=== PATIENT | male | born 1940 | race Caucasian/White ===

== ENCOUNTER 2016-12-31 10:07 | Emergency (ER) | payer MEDICARE, BC ==
[2016-12-31 10:42] VITALS: BP 127/76
--- NOTE | 2016-12-31 10:50 | EDM.PDOC ---
ED HPI GENERAL MEDICAL PROBLEM - General Time Seen by Provider: 12/31/16 10:20 Source of Information: Reports: Patient History Limitations: Reports: No Limitations - History of Present Illness INITIAL COMMENTS - FREE TEXT/NARRATIVE: According to patient he has bladder cancer and he had BCG infiltration of the bladder done yesterday. HE was fine until last night, when he started to have diarrhea, he claims he has had 10 episodes of loose stool since last night. Stools are watery, and yellow. At times he has noted some specks of blood in it. Also had some mucus in stool. He claims last night he had a temp of 105F. Presently his temp is 99.3F. No nausea or vomiting. Has been able to eat and drink. Feels mild abdominal bloating. Duration: Waxing/Waning Severity: Mild Improves with: Reports: None Worsens with: Reports: None Associated Symptoms: Reports: Fever/Chills. Denies: Chest Pain, Cough, Headaches, Loss of Appetite, Nausea/Vomiting, Rash, Shortness of Breath, Syncope , Weakness - Related Data Allergies Allergy/AdvReac Type Severity Reaction Status Date / Time No Known Allergies Allergy Verified 12/31/16 10:32 Home Meds: Home Meds Allopurinol [Allopurinol] 300 mg PO Q48H 10/15/13 [History] Enalapril Maleate [Enalapril Maleate] 10 mg PO DAILY 10/15/13 [History] Multivit&Min/FA/Lycopene/Martin [Bladder 2.2] 2 each PO DAILY 10/15/13 [History] Warfarin Sodium [Jantoven] 5 mg PO DAILY 12/31/16 [History] Warfarin Sodium [Jantoven] 7.5 mg PO DAILY 12/31/16 [History] ED ROS GENERAL - Review of Systems Review Of Systems: See Below Constitutional: Reports: Fever. Denies: Chills, Fatigue, Night Sweats, Decreased Appetite, Weight Loss HEENT: Reports: Other ( had nasl congestion few weeks ago.). Denies: Throat Pain, Throat Swelling Respiratory: Denies: Cough, Sputum Cardiovascular: Denies: Chest Pain, Syncope GI/Abdominal: Reports: Diarrhea, Distension, Flatus. Denies: Abdominal Pain, Nausea, Vomiting : Reports: Hematuria (has noticed some hematuria after bladder distension yesterday). Denies: Dysuria, Flank Pain Musculoskeletal: Denies: Joint Pain, Joint Swelling Neurological: Denies: Dizziness, Headache ED EXAM, GENERAL - Physical Exam Exam: See Below Exam Limited By: No Limitations General Appearance: Alert, WD/WN, No Apparent Distress, Other (Normal hydration) Eye Exam: Bilateral Eye: EOMI, PERRL Ears: Normal External Exam, Normal Canal, Hearing Grossly Normal, Normal TMs Ear Exam: Bilateral Ear: Auricle Normal, Canal Normal, TM normal Nose: Normal Inspection, Normal Mucosa, No Blood Throat/Mouth: Normal Inspection, Normal Lips, Normal Teeth, Normal Gums, Normal Oropharynx, Normal Voice, No Airway Compromise Head: Atraumatic, Normocephalic Neck: Normal Inspection, Supple, Non-Tender, Full Range of Motion Respiratory/Chest: No Respiratory Distress, Lungs Clear, Normal Breath Sounds, No Accessory Muscle Use, Chest Non-Tender Cardiovascular: Normal Peripheral Pulses, Regular Rate, Rhythm, No Edema, No Gallop, No JVD, No Murmur, No Rub GI/Abdominal: Normal Bowel Sounds, Soft, Non-Tender, No Organomegaly, No Distention, No Abnormal Bruit, No Mass, Other Rectal (Males) Exam: Normal Exam, Normal Rectal Tone. No: Black Stool, Bloody Stool Extremities: Normal Inspection, Normal Range of Motion, Non-Tender, Normal Capillary Refill, No Pedal Edema Course - Vital Signs Text/Narrative:: Pt's CBC shows white count of 16K. His electrolytes are normal. His Creat is slightly elevated, but we do not have his baseline creat. His hydration is appropriate clinically. Also his abdominal exam is benign, non-tender abdomen. His elevated white count to reactive change from inflammation. Pt has been here for about 1 and 1/2 hr and cannot produce stool sample. I have reassured patient that his episode of diarrhea does appear like diarrhea which might resolve in next 24 hrs. Advised plenty of fluids and powered and gatorade. Advised soft diet and avoid meat and fried food until diarrhea resolve. Advised to get stool sample for further workup. IF diarrhea worsen, of if he lethargic and tiered return to emergency room. Other kern pfollowup with primary care provider in clinic. Last Recorded V/S: Last Vital Signs Temp 99.5 F 12/31/16 10:40 Pulse 111 H 09/01/17 10:40 Resp 18 12/31/16 10:40 BP 127/76 12/31/16 10:40 Pulse Ox 96 12/31/16 10:40 - Orders/Labs/Meds Orders: Active Orders 24 hr Category Date Time Status CLOSTRIDIUM DIFFICILE BY PCR [RM] Stat Lab 12/31/16 10:38 Uncollected CULTURE-STOOL [MREF] Stat Lab 12/31/16 10:40 Uncollected Labs: Laboratory Tests 12/31/16 12/31/16 12/31/16 Range/Units 10:38 10:52 10:52 WBC 16.4 H D (4.0-11.0) K/uL RBC 4.83 (4.50-6.50) M/uL Hgb 15.2 (13.0-18.0) g/dL Hct 43.4 (40.0-54.0) % MCV 90 (76-96) fL MCH 31.5 (27.0-32.0) pg MCHC 35.0 (31.0-35.0) g/dL RDW 14.1 (11.0-16.0) % Plt Count 150 (150-400) K/uL MPV 9.8 (6.0-10.0) fL Neut % (Auto) 82.0 H (45.0-70.0) % Lymph % (Auto) 10.9 L (20.0-40.0) % Hughes % (Auto) 6.8 (3.0-10.0) % Eos % (Auto) 0.0 L (1.0-5.0) % Baso % (Auto) 0.3 (0.0-0.5) % Neut # (Auto) 13.44 H (2.00-7.50) K/uL Lymph # (Auto) 1.78 (1.50-4.00) K/uL Hughes # (Auto) 1.12 H (0.20-0.80) K/uL Eos # (Auto) 0.00 L (0.04-0.40) K/uL Baso # (Auto) 0.05 (0.02-0.10) K/uL PT 16.6 H (9.0-11.5) sec INR 1.7 (1.0-3.5) Sodium 137 (136-145) mmol/L Potassium 4.1 (3.5-5.1) mmol/L Chloride 101 (98-107) mmol/L Carbon Dioxide 29.2 (21.0-32.0) mmol/L Anion Gap 10.9 (5.0-15.0) mmol/L BUN 18 D (8-26) mg/dL Creatinine 1.37 H D (0.70-1.30) mg/dL Est Cr Clr Drug Dosing 47.31 mL/min Estimated GFR (MDRD) 51 L (>60) MLS/MIN BUN/Creatinine Ratio 13.1 (6-25) Glucose 126 H (74-100) mg/dL Calcium 8.6 (8.5-10.1) mg/dL Total Bilirubin 0.7 D (0.0-1.0) mg/dL AST 18 (15-37) U/L ALT 28 (12-78) U/L Alkaline Phosphatase 47 (46-116) U/L Total Protein 6.6 (6.4-8.2) g/dL Albumin 3.5 (3.4-5.0) g/dL Globulin 3.1 (2.2-4.2) g/dL Albumin/Globulin Ratio 1.1 (0.8-2.0) Departure - Departure Time of Disposition: 12:00 Disposition: Home, Self-Care 01 Condition: Fair Clinical Impression: Diarrhea - Discharge Information Referrals: PCP,None [Primary Care Provider] - - Problem List & Annotations (1) Diarrhea SNOMED Code(s): 65823170 Code(s): R19.7 - DIARRHEA, UNSPECIFIED Status: Acute Current Visit: Yes - Problem List Review Problem List Initiated/Reviewed/Updated: Yes - My Orders Last 24 Hours: My Active Orders 12/31/16 10:38 CLOSTRIDIUM DIFFICILE BY PCR [] Stat 12/31/16 10:40 CULTURE-STOOL [MREF] Stat - Assessment/Plan Last 24 Hours: My Active Orders 12/31/16 10:38 CLOSTRIDIUM DIFFICILE BY PCR [] Stat 12/31/16 10:40 CULTURE-STOOL [MREF] Stat Assessment:: Diarrhea with normal hydration Plan: Pt's CBC shows white count of 16K. His electrolytes are normal. His Creat is slightly elevated, but we do not have his baseline creat. His hydration is appropriate clinically. Also his abdominal exam is benign, non-tender abdomen. His elevated white count to reactive change from inflammation. Pt has been here for about 1 and 1/2 hr and cannot produce stool sample. I have reassured patient that his episode of diarrhea does appear like diarrhea which might resolve in next 24 hrs. Advised plenty of fluids and powered and gatorade. Advised soft diet and avoid meat and fried food until diarrhea resolve. Advised to get stool sample for further workup. IF diarrhea worsen, of if he lethargic and tiered return to emergency room. Other kern pfollowup with primary care provider in clinic.
== END 2016-12-31 11:48 | disposition home or self-care (01) ==
LOC: LB.ED 10:07
DX: R19.7 Diarrhea, unspecified (principal); Z79.01 Long term (current) use of anticoagulants; Z79.899 Other long term (current) drug therapy
CPT/HCPCS: 36415; 80053; 85025; 85610; 99283

== ENCOUNTER 2019-12-23 05:39 | Emergency (ER) | payer MEDICARE, BC ==
[2019-12-23 06:17] VITALS: BP 160/81; PULSE 93
== END 2019-12-23 06:00 | disposition home or self-care (01) ==
LOC: LB.ED 05:39
DX: Z53.21 Procedure and treatment not carried out due to patient leaving prior to being seen by health care provider (principal)